=== PATIENT | male | born 1985 | race Caucasian/White ===

== ENCOUNTER 2016-10-11 22:25 | Emergency (ER) | payer OTHER ==
[2016-10-11 22:50] VITALS: BP 130/86; PULSE 80; TEMP 97; BMI 28.7
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
== END 2016-10-12 01:04 | disposition home or self-care (01) ==
LOC: JER 22:25 → JERFT 22:25 → JER 10-12 01:04
DX: Z77.21 Contact with and (suspected) exposure to potentially hazardous body fluids (principal); S40.811A Abrasion of right upper arm, initial encounter; Y35.891A Legal intervention involving other specified means, law enforcement official injured, initial encounter; Y93.89 Activity, other specified; Y92.9 Unspecified place or not applicable; Y99.0 Civilian activity done for income or pay
CPT/HCPCS: 99281-25

== ENCOUNTER 2016-12-06 18:21 | Emergency (ER) | payer OTHER ==
[2016-12-06 18:29] VITALS: BP 150/83; PULSE 81; TEMP 98; BMI 27.2
[2016-12-06] MEDS ORDERED: IBUPROFEN 600 MG TABLET (FP) PO ONE ×2 (18:45→18:47)
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
== END 2016-12-06 19:23 | disposition home or self-care (01) ==
LOC: JERFT 18:21
DX: S00.83XA Contusion of other part of head, initial encounter (principal); S00.33XA Contusion of nose, initial encounter; Y35.391A Legal intervention involving other blunt objects, law enforcement official injured, initial encounter; Y93.89 Activity, other specified; Y92.89 Other specified places as the place of occurrence of the external cause; Y99.0 Civilian activity done for income or pay
CPT/HCPCS: 99281-25

== ENCOUNTER 2017-05-30 17:31 | Emergency (ER) | payer OTHER ==
[2017-05-30 17:44] VITALS: BP 132/77; PULSE 86; TEMP 98.1; BMI 26.5
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
== END 2017-05-30 18:57 | disposition home or self-care (01) ==
LOC: JERFT 17:31
DX: S89.81XA Other specified injuries of right lower leg, initial encounter (principal); Y35.811A Legal intervention involving manhandling, law enforcement official injured, initial encounter; Y93.89 Activity, other specified; Y92.89 Other specified places as the place of occurrence of the external cause; Y99.0 Civilian activity done for income or pay
CPT/HCPCS: 99281-25

== ENCOUNTER 2017-06-03 15:40 | Emergency (ER) | payer OTHER ==
[2017-06-03 15:44] VITALS: BP 134/81; PULSE 79; TEMP 97.7; BMI 26.5
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
== END 2017-06-03 16:51 | disposition home or self-care (01) ==
LOC: JERFT 15:40
DX: S43.492A Other sprain of left shoulder joint, initial encounter (principal); S46.912A Strain of unspecified muscle, fascia and tendon at shoulder and upper arm level, left arm, initial encounter; Y35.811A Legal intervention involving manhandling, law enforcement official injured, initial encounter; Y93.89 Activity, other specified; Y92.89 Other specified places as the place of occurrence of the external cause; Y99.0 Civilian activity done for income or pay
CPT/HCPCS: 73030-TC-LT-FY; 99281-25

== ENCOUNTER 2017-12-20 19:42 | Emergency (ER) | payer OTHER ==
[2017-12-20 19:47] VITALS: BP 128/74; PULSE 60; TEMP 98; BMI 27.2
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
== END 2017-12-20 20:09 | disposition home or self-care (01) ==
LOC: JERFT 19:42
DX: Z77.21 Contact with and (suspected) exposure to potentially hazardous body fluids (principal); S60.414A Abrasion of right ring finger, initial encounter; Y35.811A Legal intervention involving manhandling, law enforcement official injured, initial encounter; Y93.89 Activity, other specified; Y92.89 Other specified places as the place of occurrence of the external cause; Y99.0 Civilian activity done for income or pay
CPT/HCPCS: 99281-25

== ENCOUNTER 2018-05-01 20:06 | Emergency (ER) | payer OTHER ==
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
[2018-05-01 20:23] VITALS: BP 120/66; PULSE 64; TEMP 98.1; BMI 27.2
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
== END 2018-05-01 21:03 | disposition home or self-care (01) ==
LOC: JERFT 20:06
DX: S80.02XA Contusion of left knee, initial encounter (principal); S50.02XA Contusion of left elbow, initial encounter; Y35.811A Legal intervention involving manhandling, law enforcement official injured, initial encounter; Y93.89 Activity, other specified; Y92.89 Other specified places as the place of occurrence of the external cause; Y99.0 Civilian activity done for income or pay
CPT/HCPCS: 99281-25

== ENCOUNTER 2018-05-12 22:09 | Emergency (ER) | payer OTHER ==
[2018-05-12 22:14] VITALS: BP 133/76; PULSE 81; TEMP 98.3; BMI 27.2
--- NOTE | 2018-05-12 22:39 | PDOC ---
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 Patient reported mild pain to anterior left knee with small abrasions. Patient denies any other symptoms Timing/Duration: 4-6 hours Past History - Past Medical History Allergies/Adverse Reactions: Allergies Allergy/AdvReac Type Severity Reaction Status Date / Time No Known Allergies Allergy Verified 05/12/18 22:14 Home Medications: Ambulatory Orders Ibuprofen 800 mg PO Q8H PRN #20 tablet 05/12/18 Anemia: No COPD: No - Surgical History Abdominal Surgery: No - Immunization History Immunization Up to Date: Yes - Suicide/Smoking/Psychosocial Hx Smoking Status: No Smoking History: Never smoked Have you smoked in the past 12 months: No Number of Cigarettes Smoked Daily: 0 Cigars Per Day: 0 Hx Alcohol Use: No Drug/Substance Use Hx: No Substance Use Type: None Review of Systems - Review of Systems Able to Perform ROS?: Yes Is the patient limited [place] proficient: No Constitutional: No: Weakness HEENTM: No: Symptoms Reported Respiratory: No: Symptoms reported Cardiac (ROS): No: Symptoms Reported ABD/GI: No: Symptoms Reported Musculoskeletal: Yes: See HPI, Muscle Pain (anterior left knee abrasions and pain) Integumentary: Yes: See HPI, Other (left anterior knee abrasions) All Other Systems: Reviewed and Negative *Physical Exam - Vital Signs Last Vital Signs Temp Pulse Resp BP Pulse Ox 98.3 F 81 18 133/76 99 05/12/18 22:12 05/12/18 22:12 05/12/18 22:12 05/12/18 22:12 05/12/18 22:12 - Physical Exam Comments: 05/12/18 22:41 GENERAL: Well developed, well nourished. Awake and alert. No acute distress. CARDIOVASCULAR: Regular rate and rhythm. No murmurs, rubs, or gallops. Distal pulses are 2+ and symmetric. PULMONARY: No evidence of respiratory distress. Lungs clear to auscultation bilaterally. No wheezing, rales or rhonchi. MUSCULOSKELETAL : mild tenderness to anterior patella of left knee with small area of superficial abrasions to left anterior patella. no swelling to knee. Normal range of motion at all joints. SKIN: Warm and dry. small superficial abrasion to left anterior patella NEUROLOGICAL: Alert, awake, appropriate. Gait is normal without ataxia. PSYCHIATRIC: Cooperative. Good eye contact. Appropriate mood General Appearance: Yes: Nourished, Appropriately Dressed. 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 Exam significant for small areas of superficial abrasion to left anterior patella with mild tenderness over aberration area otherwise normal exam. No swelling to left knee. Wound cleaned with Betadine and bacitracin applied to abrasions. Wound covered with adhesive bandage. Patient stable for discharge to take Motrin as needed for pain. *DC/Admit/Observation/Transfer Diagnosis at time of Disposition: Abrasion, left knee, initial encounter Contusion of left knee Qualifiers: Encounter type: initial encounter Qualified Code(s): S80.02XA - Contusion of left knee, initial encounter Knee injury Qualifiers: Encounter type: initial encounter Laterality: right Qualified Code(s): S89.91XA - Unspecified injury of right lower leg, initial encounter - Discharge Dispostion Disposition: HOME Condition at time of disposition: Stable Decision to Admit order: No - Prescriptions Prescriptions: Ibuprofen 800 mg PO Q8H PRN #20 tablet PRN Reason: pain - Referrals - Patient Instructions Printed Discharge Instructions: DI for Abrasion Additional Instructions: Use bacitracin or Neosporin to wound twice a day as needed on to wound is healed. Take prescribed Motrin as needed for pain. - Post Discharge Activity
== END 2018-05-12 22:43 | disposition home or self-care (01) ==
LOC: JERFT 22:09
DX: S80.02XA Contusion of left knee, initial encounter (principal); S80.212A Abrasion, left knee, initial encounter; Y35.811A Legal intervention involving manhandling, law enforcement official injured, initial encounter; Y93.89 Activity, other specified; Y92.89 Other specified places as the place of occurrence of the external cause; Y99.0 Civilian activity done for income or pay
CPT/HCPCS: 99281-25

== ENCOUNTER 2018-09-05 17:00 | Emergency (ER) | payer OTHER ==
[2018-09-05 17:11] VITALS: BP 123/72; PULSE 87; TEMP 98.5; BMI 26.5
--- NOTE | 2018-09-05 17:12 | PDOC ---
Rapid Medical Evaluation Chief Complaint: Injury Time Seen by Provider: 09/05/18 17:09 Medical Evaluation: Allergies Allergy/AdvReac Type Severity Reaction Status Date / Time No Known Allergies Allergy Verified 05/12/18 22:14 Vital Signs Temp Pulse Resp BP Pulse Ox 98.5 F 87 17 123/72 100 09/05/18 17:05 09/05/18 17:05 09/05/18 17:05 09/05/18 17:05 09/05/18 17:05 09/05/18 17:09 Pt c/o: rt thumb pain after hitting it on a fence, On duty for [employer] Pt on brief exam: noted small ecchymotic area to lat aspect of 1st finger nailbed, no deformity or LROM Pt ordered for: none pt to proceed to the ED Discharge Disposition - Diagnosis Pain of right thumb - Referrals - Patient Instructions - Post Discharge Activity
--- NOTE | 2018-09-05 17:49 | PDOC ---
History of Present Illness - General Chief Complaint: Injury Stated Complaint: [employer] Time Seen by Provider: 09/05/18 17:09 History Source: Patient Exam Limitations: No Limitations Past History - Past Medical History Allergies/Adverse Reactions: Allergies Allergy/AdvReac Type Severity Reaction Status Date / Time No Known Allergies Allergy Verified 09/05/18 17:13 Home Medications: Ambulatory Orders NK [No Known Home Medication] 09/05/18 Anemia: No COPD: No - Surgical History Abdominal Surgery: No - Immunization History Immunization Up to Date: Yes - Suicide/Smoking/Psychosocial Hx Smoking Status: No Smoking History: Never smoked Have you smoked in the past 12 months: No Number of Cigarettes Smoked Daily: 0 Cigars Per Day: 0 Information on smoking cessation initiated: No Hx Alcohol Use: No Drug/Substance Use Hx: No Substance Use Type: None Trauma Specific PMHX - Complaint Specific PMHX Arthritis: No Back Injury: No Neck Injury: No Hx Sacro Iliac Joint Dysfunction: No *Physical Exam - Vital Signs Last Vital Signs Temp Pulse Resp BP Pulse Ox 98.5 F 87 17 123/72 100 09/05/18 17:05 09/05/18 17:05 09/05/18 17:05 09/05/18 17:05 09/05/18 17:05 - Physical Exam General Appearance: No: Apparent Distress Comments:: RUE pulses intact 09/05/18 17:44 Musculoskeletal: negative: Decreased Range of Motion Extremity: positive: Normal Capillary Refill, Other (mild redness along medial aspect of R thumb along distal phalanx, no abrasion/laceration, FROM of R thumb , no other trauma to RUE noted) Integumentary: positive: Dry. negative: Ecchymosis, Bruising Neurologic: positive: Fully Oriented, Alert, Normal Mood/Affect. 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 States he was climbing up 15 foot fence and banged R thumb against metal post. Denies head/neck/other trauma, numbness. No concern for fracture based on exam Patient reassured Stable for dc 09/05/18 17:45 *DC/Admit/Observation/Transfer Diagnosis at time of Disposition: Pain of right thumb - Discharge Dispostion Disposition: HOME Condition at time of disposition: Stable Decision to Admit order: No - Referrals - Patient Instructions Additional Instructions: Thank you for choosing [facility]. It was a pleasure taking care of you. You may take Tylenol 650 mg or Motrin 600 mg every 6 hours by mouth as needed for mild to moderate pain. Take Motrin with food. Do not take more than 4000 mg of Tylenol in 1 day. Return to the Emergency Department if your symptoms worsen or persist or have other concerning symptoms. - Post Discharge Activity
== END 2018-09-05 17:50 | disposition home or self-care (01) ==
LOC: JERFT 17:00
DX: M79.644 Pain in right finger(s) (principal); Y35.891A Legal intervention involving other specified means, law enforcement official injured, initial encounter; Y93.89 Activity, other specified; Y92.89 Other specified places as the place of occurrence of the external cause; Y99.0 Civilian activity done for income or pay
CPT/HCPCS: 99281-25

== ENCOUNTER 2018-12-28 22:34 | Emergency (ER) | payer OTHER ==
[2018-12-28 22:45] VITALS: BP 118/77; PULSE 79; TEMP 98.4; BMI 26.5
--- NOTE | 2018-12-28 22:45 | PDOC ---
History of Present Illness - General Chief Complaint: Injury Stated Complaint: [employer] Time Seen by Provider: 12/28/18 22:43 - History of Present Illness Initial Comments: 12/28/18 22:45 CHIEF COMPLAINT: L shoulder pain HISTORY OF PRESENT ILLNESS: 33 yo M with no PMH presents to ED with pain to L shoulder. 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 Patient reports FROM to L shoulder, refuses any medications. No recent travel or sick contacts. PAST MEDICAL HISTORY: Denies past medical history FAMILY HISTORY: Denies SOCIAL HISTORY: Denies tobacco, alcohol, illicit drug use. SURGICAL HISTORY: Denies ALLERGIES: No known drug allergies REVIEW OF SYSTEMS General/Constitutional: Denies fever or chills. Denies weakness, weight change. HEENT: Denies change in vision. Denies ear pain or discharge. Denies sore throat. Cardiovascular: Denies chest pain or shortness of breath. Respiratory: Denies cough, wheezing, or hemoptysis. Gastrointestinal: Denies nausea, vomiting, diarrhea or constipation. Denies rectal bleeding. Genitourinary: Denies dysuria, frequency, or change in urination. Musculoskeletal: L shoulder strain. Skin and breasts: Denies rash or easy bruising. Neurologic: Denies headache, vertigo, loss of consciousness, or loss of sensation. Psychiatric: Denies depression or anxiety. PHYSICAL EXAM General Appearance: Well-appearing, appropriately dressed. No apparent distress , no intoxication. HEENT: EOMI, PERRLA, normal ENT inspection, normal voice, TMs normal, pharynx normal. No conjunctival pallor. No photophobia, scleral icterus. Neck: Supple. Trachea midline. No tenderness, rigidity, carotid bruit, stridor , lymphadenopathy, or thyromegaly. Respiratory/Chest: Lungs CTAB. No shortness of breath, chest tenderness, respiratory distress, accessory muscle use. No crackles, rales, rhonchi, stridor , wheezing, dullness Cardiovascular: RRR. S1, S2. No JVD, murmur, bradycardia, tachycardia. Vascular Pulses: Dorsalis-Pedis (R): 2+, Dorsalis-Pedis (L): 2+ Gastrointestinal/Abdominal: Normal bowel sounds. Abdomen soft, non-distended. No tenderness or rebound tenderness. No organomegaly, pulsatile mass, guarding , hernia, hepatomegaly, splenomegaly. Lymphatic: No adenopathy, tenderness. Musculoskeletal/Extremities: Normal inspection. FROM of all extremities, normal capillary refill. Pelvis Stable. No CVA tenderness. No tenderness to extremities, pedal edema, swelling, erythema or deformity. Integumentary: Appropriate color, dry, warm. No cyanosis, erythema, jaundice or rash Neurologic: cooling room attendant II-XII intact. Fully oriented, alert. Appropriate mood/affect. Motor strength 5/5. No appreciable EOM palsy, facial droop or sensory deficit. Past History - Past Medical History Allergies/Adverse Reactions: Allergies Allergy/AdvReac Type Severity Reaction Status Date / Time No Known Allergies Allergy Verified 12/28/18 22:45 Home Medications: Ambulatory Orders NK [No Known Home Medication] 09/05/18 Anemia: No COPD: No - Surgical History Abdominal Surgery: No - Immunization History Immunization Up to Date: Yes - Psycho Social/Smoking Cessation Hx Smoking Status: No Smoking History: Never smoked Have you smoked in the past 12 months: No Number of Cigarettes Smoked Daily: 0 Cigars Per Day: 0 Information on smoking cessation initiated: No Hx Alcohol Use: No Drug/Substance Use Hx: No Substance Use Type: None *Physical Exam - Vital Signs Last Vital Signs Temp Pulse Resp BP Pulse Ox 98.4 F 79 18 118/77 100 12/28/18 22:41 12/28/18 22:41 12/28/18 22:41 12/28/18 22:41 12/28/18 22:41 Medical Decision Making - Medical Decision Making 12/28/18 22:55 33 yo M with no PMH presents to ED with pain to L shoulder. Patient refused meds. Discharge - Discharge Information Problems reviewed: Yes Clinical Impression/Diagnosis: Left shoulder strain Qualifiers: Encounter type: initial encounter Qualified Code(s): S46.912A - Strain of unspecified muscle, fascia and tendon at shoulder and upper arm level, left arm , initial encounter Condition: Stable Disposition: HOME - Admission No - Follow up/Referral - Patient Discharge Instructions Patient Printed Discharge Instructions: DI for Shoulder Pain - Post Discharge Activity
== END 2018-12-28 23:32 | disposition home or self-care (01) ==
LOC: JER 22:34
DX: S46.812A Strain of other muscles, fascia and tendons at shoulder and upper arm level, left arm, initial encounter (principal); Y35.811A Legal intervention involving manhandling, law enforcement official injured, initial encounter; Y93.69 Activity, other involving other sports and athletics played as a team or group; Y92.89 Other specified places as the place of occurrence of the external cause; Y99.0 Civilian activity done for income or pay
CPT/HCPCS: 99283-25

== ENCOUNTER 2021-02-24 20:58 | Emergency (ER) | payer BC ==
[2021-02-24 21:03] VITALS: BP 134/80; PULSE 65; TEMP 97.9; BMI 26.5
[2021-02-24] MEDS ORDERED: DIPHTH,PERTUSS(ACELL),TET 0.5 ML DISP.SYRIN IM ONE (21:22)
[2021-02-24] MEDS ORDERED: TETANUS AND DIPHTHERIA TOXOID 0.5 ML DISP.SYRIN IM ONE (21:23)
== END 2021-02-24 21:28 | disposition home or self-care (01) ==
LOC: FER 20:58
PROC: 3E0234Z Introduction of Serum, Toxoid and Vaccine into Muscle, Percutaneous Approach (ICD-10-PCS; principal; 2021-02-24)
DX: S61.210A Laceration without foreign body of right index finger without damage to nail, initial encounter (principal); W26.8XXA Contact with other sharp object(s), not elsewhere classified, initial encounter; Y92.9 Unspecified place or not applicable
CPT/HCPCS: 90715; 99283-25